=== PATIENT | male | born 1985 | race Hispanic/Latino ===

== ENCOUNTER 2016-07-11 06:55 | Emergency (ER) | payer OTHER ==
[2016-07-11] MEDS ORDERED: TORADOL IM ONE (07:17)
[2016-07-11] MEDS ORDERED: XYLOCAINE 1%/ EPI 1:100,000 INFILTRATI ONE (07:17)
[2016-07-11] MEDS ORDERED: BOOSTRIX IM ONE (07:18)
[2016-07-11 09:10] VITALS: BP 132/77
--- NOTE | 2016-07-11 09:16 | Emergency Department Report ---
ED General Adult HPI - General Chief complaint: Wound/Laceration Stated complaint: HEAD LAC/BACK PAIN Time Seen by Provider: 07/11/16 07:10 Source: patient Mode of arrival: Ambulatory Limitations: No Limitations - History of Present Illness Initial comments: The patient states he was startled by a snake while he was on a step ladder in his garage. He fell backwards and sliced the back of his scalp with sheet mental and fell onto his back. He complains of mild neck discomfort and moderate lower back pain. He states he felt some transient tingling but has no numbness or weakness of the extremities. He has been fully ambulatory. He states he's had some problems with his back in the past but not prior with his neck. Doesn't report any specific diagnosis however. -: Sudden Location: head, neck, back Radiation: non-radiation Quality: aching Consistency: intermittent Improves with: none Worsens with: none Associated Symptoms: denies other symptoms - Related Data Previous Rx's Medication Instructions Recorded Last Taken Type Cyclobenzaprine HCl [Flexeril 5 MG 5 mg PO TID PRN #10 tab 07/11/16 Unknown Rx TAB] HYDROcodone/APAP 5-325 [[place] 1 each PO Q6HR PRN #10 tablet 07/11/16 Unknown Rx 5/325] Allergies Allergy/AdvReac Type Severity Reaction Status Date / Time Penicillins Allergy Unknown Verified 07/11/16 07:07 ED Review of Systems ROS: Stated complaint: HEAD LAC/BACK PAIN Other details as noted in HPI Constitutional: denies: chills, fever Eyes: denies: eye pain, eye discharge, vision change ENT: denies: ear pain, throat pain Respiratory: denies: cough, shortness of breath, wheezing Cardiovascular: denies: chest pain, palpitations Endocrine: no symptoms reported Gastrointestinal: denies: abdominal pain, nausea, diarrhea Genitourinary: denies: urgency, dysuria Musculoskeletal: denies: back pain, joint swelling, arthralgia Skin: denies: rash, lesions Neurological: paresthesias. denies: headache, weakness, numbness, confusion Psychiatric: denies: anxiety, depression Hematological/Lymphatic: denies: easy bleeding, easy bruising ED Past Medical Hx - Past Medical History Additional medical history: Lower back pain - Surgical History Past Surgical History?: No - Social History Smoking Status: Never Smoker Substance Use Type: None - Medications Home Medications: Home Medications Medication Instructions Recorded Confirmed Last Taken Type Cyclobenzaprine HCl [Flexeril 5 MG 5 mg PO TID PRN #10 tab 07/11/16 Unknown Rx TAB] HYDROcodone/APAP 5-325 [[place] 1 each PO Q6HR PRN #10 tablet 07/11/16 Unknown Rx 5/325] ED Physical Exam - General Limitations: No Limitations General appearance: alert, in no apparent distress - Head Head exam: Present: normocephalic, other (3 cm superficial linear scalp laceration occiput) - Eye Eye exam: Present: normal appearance, PERRL, EOMI. Absent: scleral icterus - ENT ENT exam: Present: normal exam, mucous membranes moist - Neck Neck exam: Present: normal inspection, full ROM. Absent: tenderness, meningismus - Respiratory Respiratory exam: Present: normal lung sounds bilaterally. Absent: respiratory distress - Cardiovascular Cardiovascular Exam: Present: regular rate, normal rhythm. Absent: systolic murmur, diastolic murmur, rubs, gallop - GI/Abdominal GI/Abdominal exam: Present: soft, normal bowel sounds. Absent: distended, tenderness, guarding, rebound - Rectal Rectal exam: Present: deferred - Extremities Exam Extremities exam: Present: normal inspection - Back Exam Back exam: Present: normal inspection - Neurological Exam Neurological exam: Present: alert, oriented X3, CN II-XII intact. Absent: motor sensory deficit - Psychiatric Psychiatric exam: Present: normal affect, normal mood - Skin Skin exam: Present: warm, dry, intact, normal color. Absent: rash ED Course Vital Signs 07/11/16 07/11/16 07/11/16 07:01 07:26 07:29 Temperature 98.1 F Pulse Rate 90 Respiratory 16 16 16 Rate Blood Pressure 136/74 Blood Pressure [Left] O2 Sat by Pulse 100 100 Oximetry 07/11/16 07/11/16 07:56 09:06 Temperature Pulse Rate 88 Respiratory 16 16 Rate Blood Pressure Blood Pressure 132/77 [Left] O2 Sat by Pulse 100 Oximetry - Reevaluation(s) Reevaluation #1: Symptoms improved. Neurologically intact. We'll refer her to orthopedics. 07/11/16 09:14 - Laceration /Wound Repair Head Wound Location: head Wound Length (cm): 3 Wound's Depth, Shape: superficial Wound Explored: clean Betadine Prep?: Yes Anesthesia: Lidocaine w/ Epi Wound Repaired With: sutures (3 [place] placed) Layer Closure?: No Sterile Dressing Applied?: No ED Medical Decision Making - Radiology Data interpreted by me: Cervical and lumbar x-ray showed no fracture or malalignment. Critical care attestation.: If time is entered above; I have spent that time in minutes in the direct care of this critically ill patient, excluding procedure time. ED Disposition Clinical Impression: Cervical strain Qualifiers: Encounter type: initial encounter Qualified Code(s): S16.1XXA - Strain of muscle, fascia and tendon at neck level, initial encounter Lumbar strain Qualifiers: Encounter type: initial encounter Qualified Code(s): S39.012A - Strain of muscle, fascia and tendon of lower back, initial encounter Scalp laceration Qualifiers: Encounter type: initial encounter Qualified Code(s): S01.01XA - Laceration without foreign body of scalp, initial encounter Disposition: DISCHARGED TO HOME OR SELFCARE Is pt being admited?: No Does the pt Need Aspirin: No Condition: Stable Instructions: Muscle Strain (ED), Laceration (ED) Additional Instructions: Follow-up with orthopedist see referral. Rx as needed for pain. Work excuse given. Prescriptions: Cyclobenzaprine HCl [Flexeril 5 MG TAB] 5 mg PO TID PRN #10 tab PRN Reason: Muscle Spasm HYDROcodone/APAP 5-325 [[place] 5/325] 1 each PO Q6HR PRN #10 tablet PRN Reason: Pain Referrals: PRIMARY MD ARPITA [Primary Care Provider] - 3-5 Days PATRICIO GUARDADO MD [Staff Physician] - 3-5 Days Forms: Work/School Release Form(ED) Time of Disposition: 09:19
--- NOTE | 2016-07-11 10:33 | XRay Report ---
LUMBAR SPINE THREE VIEWS: 07/11/16 06:55:00 CLINICAL: Pain after fall. FINDINGS: Normal vertebral body height, alignment and disk spaces. Multilevel facet joint sclerosis. The pedicles are intact. No fracture. Normal soft tissues. IMPRESSION: Facet joint arthropathy. No apparent traumatic injury.
--- NOTE | 2016-07-11 10:33 | XRay Report ---
CERVICAL SPINE SERIES THREE VIEWS: 07/11/16 06:55:00 CLINICAL: Fall and neck pain. FINDINGS: Normal vertebral body height, alignment and disk spaces. No fracture or subluxation. Normal odontoid and C1. Normal airway and soft tissues. IMPRESSION: Normal.
== END 2016-07-11 09:36 | disposition home or self-care (01) ==
LOC: ED 06:55
DX: S01.01XA Laceration without foreign body of scalp, initial encounter (principal); S39.012A Strain of muscle, fascia and tendon of lower back, initial encounter; S16.1XXA Strain of muscle, fascia and tendon at neck level, initial encounter; W18.30XA Fall on same level, unspecified, initial encounter; Y93.9 Activity, unspecified; Y92.9 Unspecified place or not applicable; Y99.9 Unspecified external cause status
CPT/HCPCS: 12002; 72040; 72100; 90471; 90715; 96372; 99283; J1885

== ENCOUNTER 2016-12-08 13:40 | Emergency (ER) | payer OTHER ==
[2016-12-08] MEDS ORDERED: TORADOL IM ONE (13:55)
[2016-12-08] MEDS ORDERED: DECADRON IM ONE (13:55)
--- NOTE | 2016-12-08 13:59 | Emergency Department Report ---
ED Back Pain/Injury HPI - General Chief Complaint: Back Pain/Injury Stated Complaint: BACK PAIN Time Seen by Provider: 12/08/16 13:50 Source: patient Limitations: No Limitations - History of Present Illness Initial Comments: 31-year-old male lifted 650 pound patient several days ago presents with worsening back pain today. 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 Pain radiated down to his toes bilaterally. He's had some tingling in his toes. He is able to walk without difficulty. He's had no bowel or bladder incontinence. He's had no numbness or tingling in his groin. MD Complaint: back pain, back injury -: Sudden Similar Symptoms Previously: No Place: work Radiation: left leg, right leg Severity: severe Quality: sharp Consistency: constant Improves With: none Worsens With: movement Associated Symptoms: difficulty walking. denies: confusion, weakness, chest pain, numbness, difficulty urinating, incontinence - Related Data Previous Rx's Medication Instructions Recorded Last Taken Type Cyclobenzaprine HCl [Flexeril 5 MG 5 mg PO TID PRN #10 tab 12/08/16 Unknown Rx TAB] HYDROcodone/APAP 5-325 [[place] 1 each PO Q6HR PRN #10 tablet 12/08/16 Unknown Rx 5-325 mg TAB] Ibuprofen [Motrin] 600 mg PO Q8H PRN #30 tablet 12/08/16 Unknown Rx methylPREDNISolone [Medrol] 4 mg PO QAM #1 tab.ds.pk 12/08/16 Unknown Rx Allergies Allergy/AdvReac Type Severity Reaction Status Date / Time Penicillins Allergy Unknown Verified 07/11/16 07:07 ED Review of Systems ROS: Stated complaint: BACK PAIN Other details as noted in HPI Constitutional: denies: chills, fever Eyes: denies: eye pain, eye discharge Cardiovascular: denies: chest pain, palpitations Gastrointestinal: nausea. denies: abdominal pain, vomiting, diarrhea Musculoskeletal: back pain Skin: denies: rash, lesions Neurological: denies: headache, weakness, abnormal gait ED Past Medical Hx - Past Medical History Previous Medical History?: No Additional medical history: Lower back pain - Surgical History Past Surgical History?: No - Family History Family history: no significant - Social History Smoking Status: Never Smoker Substance Use Type: None - Medications Home Medications: Home Medications Medication Instructions Recorded Confirmed Last Taken Type Cyclobenzaprine HCl [Flexeril 5 MG 5 mg PO TID PRN #10 tab 12/08/16 Unknown Rx TAB] HYDROcodone/APAP 5-325 [[place] 1 each PO Q6HR PRN #10 tablet 12/08/16 Unknown Rx 5-325 mg TAB] Ibuprofen [Motrin] 600 mg PO Q8H PRN #30 tablet 12/08/16 Unknown Rx methylPREDNISolone [Medrol] 4 mg PO QAM #1 tab.ds.pk 12/08/16 Unknown Rx ED Physical Exam - General Limitations: No Limitations General appearance: alert, in no apparent distress - Head Head exam: Present: atraumatic, normocephalic - Eye Eye exam: Present: normal appearance, PERRL, EOMI - ENT ENT exam: Present: mucous membranes moist - Neck Neck exam: Present: normal inspection. Absent: lymphadenopathy - GI/Abdominal GI/Abdominal exam: Present: soft, normal bowel sounds. Absent: distended, tenderness, guarding - Rectal Rectal exam: Present: deferred - Extremities Exam Extremities exam: Present: normal inspection - Back Exam Back exam: Present: normal inspection, tenderness (tender in his right and left paraspinal muscles in his lumbar region), muscle spasm, paraspinal tenderness. Absent: vertebral tenderness - Neurological Exam Neurological exam: Present: alert, oriented X3, normal gait. Absent: motor sensory deficit - Psychiatric Psychiatric exam: Present: normal affect, normal mood - Skin Skin exam: Present: warm, dry, intact, normal color. Absent: rash ED Course Vital Signs 12/08/16 12/08/16 12/08/16 13:46 14:03 14:33 Temperature 98.4 F Pulse Rate 102 H Respiratory 18 18 18 Rate Blood Pressure 161/103 O2 Sat by Pulse 100 Oximetry 12/08/16 14:34 Temperature Pulse Rate Respiratory 18 Rate Blood Pressure O2 Sat by Pulse Oximetry ED Medical Decision Making - Medical Decision Making She will back injury likely due to heavy lifting. Plan to treat with IM steroids and I am NSAIDs. We will reassess. Patient does not appear to have cauda equina type symptoms. Patient improved with Toradol steroids and morphine. We'll repeat dose of morphine in the emergency department and plan to discharge the patient with oral steroids NSAIDs and Valium. Critical care attestation.: If time is entered above; I have spent that time in minutes in the direct care of this critically ill patient, excluding procedure time. ED Disposition Clinical Impression: Muscle spasm, Lumbar strain Disposition: TO HOME OR SELFCARE Is pt being admited?: No Condition: Stable Instructions: Lumbar Radiculopathy (ED), Low Back Strain (ED) Prescriptions: Cyclobenzaprine HCl [Flexeril 5 MG TAB] 5 mg PO TID PRN #10 tab PRN Reason: Muscle Spasm HYDROcodone/APAP 5-325 [[place] 5-325 mg TAB] 1 each PO Q6HR PRN #10 tablet PRN Reason: Pain Ibuprofen [Motrin] 600 mg PO Q8H PRN #30 tablet PRN Reason: Pain methylPREDNISolone [Medrol] 4 mg PO QAM #1 tab.ds.pk
[2016-12-08] MEDS ORDERED: MORPHINE ONE (14:26)
[2016-12-08] MEDS ORDERED: ZOFRAN ODT ONE (14:26)
[2016-12-08] MEDS ORDERED: MORPHINE IV ONE (14:32)
[2016-12-08] MEDS ORDERED: ZOFRAN ODT PO ONE (14:33)
[2016-12-08] MEDS ORDERED: MORPHINE IM ONE (16:17)
[2016-12-08 16:41] VITALS: BP 118/67
== END 2016-12-08 16:41 | disposition home or self-care (01) ==
LOC: ED 13:40
DX: S39.012A Strain of muscle, fascia and tendon of lower back, initial encounter (principal); Z88.0 Allergy status to penicillin; X58.XXXA Exposure to other specified factors, initial encounter; Y93.89 Activity, other specified; Y92.89 Other specified places as the place of occurrence of the external cause; Y99.8 Other external cause status
CPT/HCPCS: 96372; 96374; 99283; J1100; J1885; J2270; Q0162

== ENCOUNTER 2016-12-17 14:23 | Emergency (ER) | payer OTHER ==
[2016-12-17 14:44] VITALS: BP 160/114
--- NOTE | 2016-12-17 16:00 | Emergency Department Report ---
ED Back Pain/Injury HPI - General Chief Complaint: Back Pain/Injury Stated Complaint: BACK INJURY Time Seen by Provider: 12/17/16 14:45 Source: patient Limitations: No Limitations - History of Present Illness Initial Comments: 31-year-old male here with back pain. Patient states that he injured his back approximately one week. He returns today with recurrent pain. He has been without pain medication since Tuesday. He's been able to ambulate with some difficulty. States the pain continues down both sides of his legs and now is extending up into his back little bit. Denies incontinence of both urine and bowel MD Complaint: back pain -: Gradual Place: work Radiation: left leg, right leg Severity: severe Quality: burning Consistency: constant Improves With: immobilization Worsens With: none Context: while lifting Associated Symptoms: difficulty walking. denies: weakness, incontinence, constipation - Related Data Previous Rx's Medication Instructions Recorded Last Taken Type Cyclobenzaprine HCl [Flexeril 5 MG 5 mg PO TID PRN #10 tab 12/08/16 Unknown Rx TAB] HYDROcodone/APAP 5-325 [[place] 1 each PO Q6HR PRN #10 tablet 12/08/16 Unknown Rx 5-325 mg TAB] Ibuprofen [Motrin] 600 mg PO Q8H PRN #30 tablet 12/08/16 Unknown Rx methylPREDNISolone [Medrol] 4 mg PO QAM #1 tab.ds.pk 12/08/16 Unknown Rx HYDROcodone/APAP 10-325 [[place] 1 each PO Q8HR PRN #20 tablet 12/17/16 Unknown Rx 10-325 mg TAB] Tizanidine HCl [Zanaflex] 2 mg PO TID PRN #20 capsule 12/17/16 Unknown Rx Allergies Allergy/AdvReac Type Severity Reaction Status Date / Time Penicillins Allergy Unknown Verified 07/11/16 07:07 ED Review of Systems ROS: Stated complaint: BACK INJURY Other details as noted in HPI Comment: All other systems reviewed and negative Constitutional: denies: chills, fever Eyes: denies: eye pain, eye discharge, vision change ENT: denies: ear pain, throat pain Respiratory: denies: cough, shortness of breath, wheezing Cardiovascular: other (hypertension). denies: chest pain, palpitations Endocrine: no symptoms reported Gastrointestinal: denies: abdominal pain, nausea, diarrhea Genitourinary: denies: urgency, dysuria Musculoskeletal: denies: back pain, joint swelling, arthralgia Skin: denies: rash, lesions Neurological: denies: headache, weakness, paresthesias Psychiatric: denies: anxiety, depression Hematological/Lymphatic: denies: easy bleeding, easy bruising ED Past Medical Hx - Past Medical History Previous Medical History?: No Additional medical history: Lower back pain - Surgical History Past Surgical History?: No - Family History Family history: no significant - Social History Smoking Status: Never Smoker Substance Use Type: Alcohol - Medications Home Medications: Home Medications Medication Instructions Recorded Confirmed Last Taken Type Cyclobenzaprine HCl [Flexeril 5 MG 5 mg PO TID PRN #10 tab 12/08/16 Unknown Rx TAB] HYDROcodone/APAP 5-325 [[place] 1 each PO Q6HR PRN #10 tablet 12/08/16 Unknown Rx 5-325 mg TAB] Ibuprofen [Motrin] 600 mg PO Q8H PRN #30 tablet 12/08/16 Unknown Rx methylPREDNISolone [Medrol] 4 mg PO QAM #1 tab.ds.pk 12/08/16 Unknown Rx HYDROcodone/APAP 10-325 [[place] 1 each PO Q8HR PRN #20 tablet 12/17/16 Unknown Rx 10-325 mg TAB] Tizanidine HCl [Zanaflex] 2 mg PO TID PRN #20 capsule 12/17/16 Unknown Rx ED Physical Exam - General Limitations: No Limitations General appearance: alert, in no apparent distress - Head Head exam: Present: atraumatic, normocephalic - Respiratory Respiratory exam: Absent: normal lung sounds bilaterally, respiratory distress - Cardiovascular Cardiovascular Exam: Present: regular rate, normal rhythm - GI/Abdominal GI/Abdominal exam: Present: soft, distended - Back Exam Back exam: Absent: muscle spasm, paraspinal tenderness, vertebral tenderness - Neurological Exam Neurological exam: Present: alert, oriented X3, reflexes normal, other ( positive straight leg bilaterally at approximately 20). Absent: motor sensory deficit - Skin Skin exam: Present: warm, dry ED Course Vital Signs 12/17/16 14:42 Temperature 98.4 F Pulse Rate 119 H Respiratory 16 Rate Blood Pressure 160/114 O2 Sat by Pulse 100 Oximetry ED Medical Decision Making - Medical Decision Making 31-year-old male with continued back pain since my last evaluation. Patient has similar symptoms as he didn't pass. He has positive straight leg bilaterally. He has normal reflexes and good strength in his lower extremities. He has no saddle anesthesia. He's been out of pain medicine since Tuesday. We discussed the possibility of ordering an MRI today but the patient declined and would prefer to wait for his follow-up with his outpatient orthopedist. Plan at this point will be to treat with continued meds continue to encourage rest and have him follow-up with his orthopedist. I do not suspect cauda equina. Portions of this chart were dictated with dictation software. There may be dictation errors contained within this note. Critical care attestation.: If time is entered above; I have spent that time in minutes in the direct care of this critically ill patient, excluding procedure time. ED Disposition Clinical Impression: Lumbar strain, Muscle spasm Disposition: - TO HOME OR SELFCARE Is pt being admited?: No Condition: Stable Instructions: Muscle Strain (ED), Back Pain (ED), Lumbar Radiculopathy (ED) Prescriptions: HYDROcodone/APAP 10-325 [[place] 10-325 mg TAB] 1 each PO Q8HR PRN #20 tablet PRN Reason: Pain Tizanidine HCl [Zanaflex] 2 mg PO TID PRN #20 capsule PRN Reason: Muscle Spasm Referrals: PRIMARY CARE, [Primary Care Provider] - 3-5 Days
== END 2016-12-17 16:10 | disposition home or self-care (01) ==
LOC: ED 14:23
DX: S39.012A Strain of muscle, fascia and tendon of lower back, initial encounter (principal); M62.838 Other muscle spasm; Z88.0 Allergy status to penicillin; X58.XXXA Exposure to other specified factors, initial encounter; Y93.89 Activity, other specified; Y99.9 Unspecified external cause status; Y92.89 Other specified places as the place of occurrence of the external cause
CPT/HCPCS: 99282

== ENCOUNTER 2017-09-14 12:08 | Observation (INO) | payer OTHER ==
[2017-09-14] MEDS ORDERED: NACL 0.9% 1000 ML 1,000 ML IV ONE (12:31)
--- NOTE | 2017-09-14 12:37 | Emergency Department Report ---
ED General Adult HPI - General Chief complaint: Back Pain/Injury Stated complaint: NECK/BACK/BODY PAIN Time Seen by Provider: 09/14/17 12:20 Source: patient, RN notes reviewed, old records reviewed Mode of arrival: Ambulatory Limitations: No Limitations - History of Present Illness Initial comments: This is a 32-year-old male who is unknown to this provider previously, past medical history of chronic back pain after work-related injury. The patient comes to the ER with a complaint of intermittent right upper extremity weakness and paralysis. It started over the weekend after receiving pain injections at the C7 level for what the patient reports to be an outpatient MRI confirmed cervical radiculopathy. Patient endorses intermittent right arm weakness. He is not weak at this time. He also indicates left upper extremity radicular numbness, intermittently, which has been chronic, also involving the left shoulder blade. The patient also indicates no bladder or bowel retention or incontinence. 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 The symptoms include episodes of syncope which appear to be unprovoked, episodes of elevated high blood pressure , especially after taking steroid pack a months ago. The patient denies DVT and pulmonary embolus risk factors. He specifically denies chest pain, shortness of breath, posterior leg pain, swelling, surgeries. An MRI was ordered by his outpatient pain specialist -: Sudden Location: right, upper extremity Severity scale (0 -10): 10 Consistency: intermittent Improves with: none Worsens with: none Associated Symptoms: syncope, weakness. denies: confusion, chest pain, cough, diaphoresis, fever/chills, headaches, loss of appetite, malaise, nausea/vomiting , rash, seizure, shortness of breath - Related Data Home Medications Medication Instructions Recorded Confirmed Last Taken Gabapentin [Neurontin] 300 mg PO Q8HR 09/14/17 09/14/17 09/14/17 Lurasidone HCl [Latuda] 40 mg PO QDAY 09/14/17 09/14/17 09/13/17 QUEtiapine [SEROquel] 200 mg PO DAILY 09/14/17 09/14/17 09/13/17 Zolpidem [Ambien] 10 mg PO QHS 09/14/17 09/14/17 09/13/17 clonazePAM [Klonopin] 3 mg PO PRN 09/14/17 09/14/17 09/13/17 traZODone [Desyrel] 200 mg PO QHS 09/14/17 09/14/17 09/13/17 Previous Rx's Medication Instructions Recorded Last Taken Type Ibuprofen [Motrin 600 MG tab] 600 mg PO Q8H PRN #30 tablet 12/08/16 09/14/17 Rx Tizanidine HCl [Zanaflex] 2 mg PO TID PRN #20 capsule 12/17/16 09/13/17 Rx HYDROcodone/APAP 10-325 [[place] 1 each PO Q8HR PRN #12 tablet 09/16/17 Unknown Rx 10-325 mg TAB] Allergies Allergy/AdvReac Type Severity Reaction Status Date / Time Penicillins Allergy Unknown Verified 07/11/16 07:07 ED Review of Systems ROS: Stated complaint: NECK/BACK/BODY PAIN Other details as noted in HPI Constitutional: denies: fever Eyes: denies: vision change ENT: denies: epistaxis Respiratory: denies: cough Cardiovascular: syncope. denies: chest pain Gastrointestinal: denies: abdominal pain Genitourinary: denies: dysuria Musculoskeletal: arthralgia, myalgia Neurological: weakness, numbness, paresthesias Psychiatric: anxiety ED Past Medical Hx - Past Medical History Additional medical history: Lower back pain - Social History Smoking Status: Never Smoker Substance Use Type: Alcohol - Medications Home Medications: Home Medications Medication Instructions Recorded Confirmed Last Taken Type Ibuprofen [Motrin 600 MG tab] 600 mg PO Q8H PRN #30 tablet 12/08/16 09/14/17 Rx Tizanidine HCl [Zanaflex] 2 mg PO TID PRN #20 capsule 12/17/16 09/14/17 Rx Gabapentin [Neurontin] 300 mg PO Q8HR 09/14/17 09/14/17 09/14/17 History Lurasidone HCl [Latuda] 40 mg PO QDAY 09/14/17 09/14/17 09/13/17 History QUEtiapine [SEROquel] 200 mg PO DAILY 09/14/17 09/14/17 09/13/17 History Zolpidem [Ambien] 10 mg PO QHS 09/14/17 09/14/17 09/13/17 History clonazePAM [Klonopin] 3 mg PO PRN 09/14/17 09/14/17 09/13/17 History traZODone [Desyrel] 200 mg PO QHS 09/14/17 09/14/17 09/13/17 History HYDROcodone/APAP 10-325 [[place] 1 each PO Q8HR PRN #12 tablet 09/16/17 Unknown Rx 10-325 mg TAB] ED Physical Exam - General Limitations: No Limitations General appearance: alert, in no apparent distress - Head Head exam: Present: atraumatic, normocephalic - Eye Eye exam: Present: normal appearance, PERRL, EOMI, other (visual acuity intact to finger counting, color perception, reading at a close distance). Absent: nystagmus - ENT ENT exam: Present: normal exam, normal orophraynx, mucous membranes moist, normal external ear exam - Neck Neck exam: Present: normal inspection, full ROM. Absent: tenderness, meningismus - Respiratory Respiratory exam: Present: normal lung sounds bilaterally. Absent: respiratory distress - Cardiovascular Cardiovascular Exam: Present: regular rate, normal rhythm, normal heart sounds. Absent: bradycardia, tachycardia, irregular rhythm, systolic murmur, diastolic murmur, rubs, gallop - GI/Abdominal GI/Abdominal exam: Present: soft, normal bowel sounds. Absent: distended, tenderness, guarding, rebound, rigid, pulsatile mass - Rectal Rectal exam: Present: deferred - Extremities Exam Extremities exam: Present: normal inspection, full ROM, normal capillary refill , other (the compartments are soft. There is no palpable cord. The pelvis is stable. 2+ pulses noted in the bilateral upper, lower extremities.). Absent: tenderness, pedal edema, joint swelling, calf tenderness - Back Exam Back exam: Present: normal inspection, full ROM, other (there is no midline spinal tenderness, step-offs, redness, pus, streaking.). Absent: tenderness, CVA tenderness (R), paraspinal tenderness, vertebral tenderness - Neurological Exam Neurological exam: Present: alert, oriented X3, CN II-XII intact, normal gait, reflexes normal, other (Extraocular movements intact. Tongue midline. No facial droop. Facial sensation intact to light touch in the V1, V2, V3 distribution bilaterally. 5 and 5 strength in 4 extremities.. Sensation is intact to light touch in 4 extremities.). Absent: motor sensory deficit ( sensation intact to light touch and proprioception in bilateral upper, lower extremities. There is no clonus, there is no hyperreflexia) - Psychiatric Psychiatric exam: Present: normal affect, normal mood - Skin Skin exam: Present: warm, dry, intact, normal color. Absent: rash ED Course Vital Signs 09/14/17 09/14/17 09/14/17 12:16 14:56 15:00 Temperature 98.0 F Pulse Rate 108 H 95 H 83 Respiratory 18 19 16 Rate Blood Pressure 132/100 Blood Pressure 137/92 [Left] O2 Sat by Pulse 100 Oximetry 09/14/17 09/14/17 09/14/17 15:15 15:31 15:45 Temperature Pulse Rate 77 81 90 Respiratory 13 12 18 Rate Blood Pressure 138/95 138/95 Blood Pressure [Left] O2 Sat by Pulse Oximetry 09/14/17 09/14/17 09/14/17 16:00 16:15 16:31 Temperature Pulse Rate 93 H 82 85 Respiratory 16 12 13 Rate Blood Pressure 151/102 151/102 151/102 Blood Pressure [Left] O2 Sat by Pulse Oximetry 09/14/17 09/14/17 09/14/17 16:45 16:58 16:59 Temperature Pulse Rate 93 H Respiratory 22 20 20 Rate Blood Pressure 151/102 Blood Pressure [Left] O2 Sat by Pulse Oximetry 09/14/17 09/14/17 09/14/17 17:00 17:15 17:31 Temperature Pulse Rate 87 92 H 94 H Respiratory 17 15 19 Rate Blood Pressure 149/101 149/101 151/102 Blood Pressure [Left] O2 Sat by Pulse Oximetry 09/14/17 09/14/17 09/14/17 17:45 18:00 18:15 Temperature Pulse Rate 90 91 H 75 Respiratory 22 18 15 Rate Blood Pressure 151/102 145/100 145/100 Blood Pressure [Left] O2 Sat by Pulse Oximetry 09/14/17 09/14/17 09/14/17 18:31 19:03 19:15 Temperature Pulse Rate 95 H 102 H 98 H Respiratory 17 17 17 Rate Blood Pressure 145/100 145/100 145/100 Blood Pressure [Left] O2 Sat by Pulse Oximetry 09/14/17 09/14/17 09/14/17 19:31 19:45 20:00 Temperature Pulse Rate 90 84 82 Respiratory 14 11 L 16 Rate Blood Pressure 145/100 145/100 134/91 Blood Pressure [Left] O2 Sat by Pulse Oximetry 09/14/17 09/14/17 09/14/17 20:03 20:15 20:31 Temperature Pulse Rate 91 H 77 Respiratory 18 15 19 Rate Blood Pressure 134/91 134/91 Blood Pressure [Left] O2 Sat by Pulse Oximetry 09/14/17 09/14/17 09/14/17 20:45 21:01 21:15 Temperature Pulse Rate 82 91 H 95 H Respiratory 13 19 13 Rate Blood Pressure 134/91 134/91 Blood Pressure [Left] O2 Sat by Pulse Oximetry 09/14/17 09/14/17 09/14/17 21:31 21:33 21:41 Temperature Pulse Rate 97 H 90 104 H Respiratory 11 L 15 16 Rate Blood Pressure 134/91 134/91 134/91 Blood Pressure [Left] O2 Sat by Pulse Oximetry - Reevaluation(s) Reevaluation #1: 09/14/17 14:58 Differential diagnosis, including not limited to: Arrhythmia, structural cardiac disease, pulmonary embolus, electrolyte derangement, multiple sclerosis , epidural/cervical cord compression syndrome, transient ischemic attack, atypical presentation of seizure Assessment and plan: 32-year-old male with a complaint of intermittent right arm weakness after spinal injection. He currently has a GCS of 15, with an NIH score of 0. He has appropriate strength, sensation and there is no clinical indication of epidural compression syndrome at this time. He is afebrile with reassuring vital signs and his tachycardia has resolved. History He appears to be unprovoked and a chronic complaint since December, does not appear to have exacerbating or relieving factors, has no DVT, pulmonary embolus risk factors is low risk by well's criteria, and had a negative d-dimer. MRI of the brain and cervical spine pending at this time, case was discussed with consulting neurologist, Dr. Wesley, who agreed with this plan of care. Disposition as per imaging. If no neurosurgical pathology is identified on MR imaging, patient would be admitted for further evaluation of syncope and presumed TIA. Reevaluation #2: 09/14/17 15:49 MRI of the brain, with and without contrast is essentially negative. There is no evidence of a demyelinating process. Reevaluation #3: 09/14/17 15:53 MRI of the cervical spine is pending. Patient has had no syncopal events in the emergency room. Care transferred to the oncoming physician, Dr. Marcum to follow-up on MRI of the C-spine. He will also follow-up on the repeat potassium level. Reevaluation #4: 09/25/17 15:36 Clinical impression was initially not entered as the patient was signed out pending advanced imaging. I am unable to enter clinical impression now given that the patient has been discharged on the [facility] system. Therefore, my clinical impression will be transient ischemic attack of the upper extremity, etiology otherwise unspecified, as well as syncope. ED Medical Decision Making - Lab Data Result diagrams: 09/14/17 12:50 09/14/17 15:07 Critical care attestation.: If time is entered above; I have spent that time in minutes in the direct care of this critically ill patient, excluding procedure time. ED Disposition Clinical Impression: Obesity (BMI 30.0-34.9) Disposition: DC-09 OP ADMIT IP TO THIS HOSP Is pt being admited?: Yes Does the pt Need Aspirin: No Condition: Good
[2017-09-14 13:28] LABS: Basophils % (Auto) 0.2 % (0.0-1.8); Eosinophils % (Auto) 0.6 % (0.0-4.3); Lymphocytes # (Auto) 1.7 K/mm3 (1.2-5.4); Lymphocytes % (Auto) 25.6 % (13.4-35.0); Mean Corpuscular HGB Conc 36 % (32-34); Mean Corpuscular Hemoglobin 32 pg (28-32); Mean Corpuscular Volume 89 fl (84-94); Monocytes # (Auto) 0.6 K/mm3 (0.0-0.8); Monocytes % (Auto) 8.6 % (0.0-7.3); Platelet Count 262 K/mm3 (140-440); Red Blood Count 5.55 M/mm3 (3.65-5.03)
[2017-09-14 13:35] LABS: Hematocrit 49.3 % (35.5-45.6); Hemoglobin 17.6 gm/dl (11.8-15.2)
[2017-09-14 13:41] LABS: INR 0.93 (0.87-1.13)
[2017-09-14 13:46] LABS: Albumin 4.8 g/dL (3.9-5); BUN/Creatinine Ratio 16; Blood Urea Nitrogen 14 mg/dL (9-20); Calcium 9.7 mg/dL (8.4-10.2); Hemolysis Index 728
[2017-09-14 14:03] LABS: Alanine Aminotransferase 40 units/L (7-56)
--- NOTE | 2017-09-14 15:58 | History and Physical Report ---
History of Present Illness Chief complaint: I feel weak, and i have been passing out History of present illness: 32 YO Male with Lumbar Pain, Cervical Radiculopathy, Chronic Pain presents to ED for evaluation. Pt states that he has experienced right arm weakness and paralysis. Pt states that he has also experienced multiple episodes of syncope. Pt states that the aformentioned symptoms began after a work related injury 9 months ago with acute worsening symptoms over the past 2 days. Pt was transported to [facility] for further care and evaluation. Pt seen and evaluated in ED and found to have symptoms consistent with acute CVA. Pt outside therapeutic window for TPA. Pt admitted to telemetry and treated IA stroke protocol. Pt denies fever, chills, CP, Palpitations, NVD, Trauma, prolonged travel/immobility , leg swelling, calf pain, BRBPR,skin rash, or recent ill contacts. Pt acknowledges presence of trigger points causing pain on physical exam. Past History Past Medical History: other (Chronic Pain, Cervical radiculopathy) Past Surgical History: No surgical history, Other (reviewed) Social history: single. denies: smoking, alcohol abuse, prescription drug abuse Family history: no significant family history (reviewed) Medications and Allergies Allergies Allergy/AdvReac Type Severity Reaction Status Date / Time Penicillins Allergy Unknown Verified 07/11/16 07:07 Home Medications Medication Instructions Recorded Confirmed Last Taken Type Ibuprofen [Motrin] 600 mg PO Q8H PRN #30 tablet 12/08/16 09/14/17 09/14/17 Rx HYDROcodone/APAP 10-325 [[place] 1 each PO Q8HR PRN #20 tablet 12/17/16 09/14/17 09/14/17 Rx 10-325 mg TAB] Tizanidine HCl [Zanaflex] 2 mg PO TID PRN #20 capsule 12/17/16 09/14/17 Rx Gabapentin [Neurontin] 300 mg PO Q8HR 09/14/17 09/14/17 09/14/17 History Lurasidone HCl [Latuda] 40 mg PO QDAY 09/14/17 09/14/17 09/13/17 History QUEtiapine [SEROquel] 200 mg PO DAILY 09/14/17 09/14/17 09/13/17 History Zolpidem [Ambien] 10 mg PO QHS 0509/14/17 09/13/17 History clonazePAM [Klonopin] 3 mg PO PRN 09/14/17 09/14/17 09/13/17 History traZODone [Desyrel] 200 mg PO QHS 09/14/17 09/14/17 09/13/17 History Review of Systems Constitutional: no weight loss, no weight gain, no fever, no chills Ears, nose, mouth and throat: no ear pain, no ear discharge, no tinnitis, no decreased hearing, no nose pain, no nasal congestion Cardiovascular: syncope, no chest pain, no orthopnea, no palpitations, no rapid/ irregular heart beat, no edema Respiratory: no cough, no cough with sputum, no excessive sputum, no hemoptysis , no shortness of breath Gastrointestinal: no abdominal pain, no nausea, no vomiting, no diarrhea, no constipation Genitourinary Male: no dysuria, no hematuria, no flank pain, no discharge, no urinary frequency, no urinary hesitancy, no nocturia, no incontinence Rectal: no pain, no incontinence, no bleeding, no discharge Musculoskeletal: low back pain, muscle weakness, no neck stiffness Integumentary: no rash, no pruritis, no redness, no sores, no wounds, no jaundice Neurological: weakness, numbness, syncope, lack of coordination, motor disturbance, no head injury, no vertigo, no headaches, no migraines, no double vision, no loss of vision Psychiatric: anxiety, no memory loss, no change in sleep habits Endocrine: no cold intolerance, no heat intolerance, no polyphagia, no excessive thirst, no polydipsia, no polyuria, no nocturia Hematologic/Lymphatic: no easy bruising, no easy bleeding, no lymphadenopathy, no lymphedema Allergic/Immunologic: no urticaria, no allergic rhinitis, no wheezing, no persistent infections, no anaphylaxis, no angioedema Exam - Constitutional Vitals: Temp Pulse Resp BP Pulse Ox 98.0 F 108 H 18 137/92 100 09/14/17 12:16 09/14/17 12:16 09/14/17 12:16 09/14/17 12:16 09/14/17 12:16 General appearance: Present: mild distress - EENT Eyes: Present: PERRL ENT: hearing intact, clear oral mucosa - Neck Neck: Present: supple, normal ROM - Respiratory Respiratory effort: normal Respiratory: bilateral: CTA - Cardiovascular Heart Sounds: Present: S1 & S2. Absent: rub, click - Extremities Extremities: pulses symmetrical, No edema Peripheral Pulses: within normal limits - Abdominal General gastrointestinal: Present: soft, non-tender, non-distended, normal bowel sounds Male genitourinary: Present: normal - Integumentary Integumentary: Present: clear, warm, dry - Musculoskeletal Musculoskeletal: gait normal, strength equal bilaterally - Psychiatric Psychiatric: appropriate mood/affect, intact judgment & insight - Neurologic Neurologic: CNII-XII intact, moves all extremities Results - Labs CBC & Chem 7: 09/14/17 12:50 09/14/17 15:07 Labs: Abnormal lab results 09/14/17 09/14/17 Range/Units 12:50 12:50 RBC 5.55 H (3.65-5.03) M/mm3 Hgb 17.6 H (11.8-15.2) gm/dl Hct 49.3 H (35.5-45.6) % MCHC 36 H (32-34) % RDW 13.0 L (13.2-15.2) % [place] % (Auto) 8.6 H (0.0-7.3) % Sodium 136 L (137-145) mmol/L Potassium 6.9 H* (3.6-5.0) mmol/L Chloride 96.4 L (98-107) mmol/L AST 68 H (5-40) units/L Total Protein 8.3 H (6.3-8.2) g/dL Assessment and Plan - Patient Problems (1) CVA (cerebral vascular accident) Current Visit: Yes Status: Suspected Qualifiers: Precerebral and cerebral artery: middle cerebral artery Laterality of affected vessel: left Plan to address problem: Stroke protocol: CT Head conducted as outpatient and was unremarkable for acute CVA, MRI brain, MRA brain, Echo, EEG, antiplatelet therapy, lipid panel, PT/OT/ Speech Therapy, Neurology consulted in ED and recommend MRI of brain and MRI C spine. (2) Cervical radiculopathy Current Visit: Yes Status: Acute Plan to address problem: Pain control, supportive care. (3) Fibromyalgia Current Visit: Yes Status: Acute Plan to address problem: THS level, B12 level, 25 Hydroxy Vitamin D level, Magnesium level, ROSI, ESR, CRP , outpatient rheumatology f/u (4) Obesity (BMI 30.0-34.9) Current Visit: Yes Status: Acute Plan to address problem: balanced diet, increased physical activity at discharge, (5) DVT prophylaxis Current Visit: Yes Status: Acute Plan to address problem: scd to ble while in bed.
[2017-09-14] MEDS ORDERED: MILK OF MAGNESIA PO PRN (16:13)
[2017-09-14] MEDS ORDERED: PROVENTIL IH PRN (16:13)
[2017-09-14] MEDS ORDERED: TYLENOL PO PRN (16:13)
[2017-09-14] MEDS ORDERED: REGLAN PO PRN (16:13)
[2017-09-14] MEDS ORDERED: SODIUM CHLORIDE FLUSH SYRINGE 10 ML IV PRN (16:13)
[2017-09-14] MEDS ORDERED: PHENERGAN PR PRN (16:13)
[2017-09-14] MEDS ORDERED: DULCOLAX PR PRN (16:13)
[2017-09-14] MEDS ORDERED: ZOFRAN IV PRN (16:13)
[2017-09-14] MEDS ORDERED: DILAUDID IV PRN (16:34)
[2017-09-14] MEDS ORDERED: MORPHINE ONE (16:52)
[2017-09-14] MEDS ORDERED: PERCOCET 5/325 ONE (16:53)
[2017-09-14] MEDS: MORPHINE IV PRN ×2 (16:58→21:21)
[2017-09-14] MEDS: PERCOCET 5/325 PO PRN ×2 (16:59→21:21)
[2017-09-14] MEDS ORDERED: MORPHINE IV ONE (19:50)
[2017-09-14 20:13] LABS: C-Reactive Protein 0.1 mg/dL (0.00-1.30)
[2017-09-14 20:28] LABS: Free T4 (Free Thyroxine) 1.27 ng/dL (0.76-1.46)
[2017-09-14] MEDS ORDERED: PEPCID PO SCH ×2 (22:00)
[2017-09-14] MEDS ORDERED: PERCOCET 5/325 PO PRN (23:50)
[2017-09-15 01:06] LABS: Bilirubin,Urine NEG (Negative); Blood,Urine NEG (Negative); Color,Urine Straw (Yellow); Protein,Urine <15 mg/dL mg/dL (Negative); Urobilinogen,Urine < 2.0 mg/dL (<2.0)
[2017-09-15 01:12] LABS: Amphetamine Screen,Urine PRESUMPTIVE NEGATIVE; Benzodiazepines Screen,Urine PRESUMPTIVE NEGATIVE; Cannabinoid Screen,Urine PRESUMPTIVE NEGATIVE; Cocaine Screen,Urine PRESUMPTIVE NEGATIVE; Methadone Screen,Urine PRESUMPTIVE NEGATIVE; Opiate Screen,Urine PRESUMPTIVE NEGATIVE
[2017-09-15 01:17] LABS: Mucus,Urine Few /HPF; WBC,Urine < 1.0 /HPF (0.0-6.0)
[2017-09-15] MEDS: MORPHINE IV PRN ×5 (01:46→20:44)
[2017-09-15 07:37] LABS: Chol/HDL Ratio 5.5 %
[2017-09-15] MEDS ORDERED: NON-FORMULARY (Lurasidone Hcl [Latuda] 40 MG) PO SCH ×2 (10:00→10:15)
[2017-09-15] MEDS ORDERED: NON-FORMULARY (Tizanidine Hcl [Zanaflex] 2 MG) PO PRN (10:01)
[2017-09-15] MEDS ORDERED: NORCO 10/325 PO PRN (10:01)
[2017-09-15] MEDS ORDERED: MOTRIN PO PRN (10:01)
[2017-09-15] MEDS: ASPIRIN PO SCH (11:01)
[2017-09-15] MEDS: PROTONIX PO SCH ×2 (11:07→22:21)
[2017-09-15] MEDS: NEURONTIN PO SCH ×2 (13:00→22:21)
[2017-09-15] MEDS: ZANAFLEX PO PRN ×2 (13:01→22:22)
--- NOTE | 2017-09-15 13:25 | Magnetic Resonance Report ---
MR CERVICAL SPINE WITHOUT CONTRAST HISTORY: Injury, pain, intermittent right upper extremity paralysis. TECHNIQUE: Axial T2 and T2 gradient. Sagittal T1, T2 and STIR. COMPARISON: No relevant comparison. FINDINGS: The cervical spinal cord is normal size and signal intensity throughout. No abnormal intramedullary signal is detected. Normal height and alignment of the cervical vertebral bodies. Normal bone marrow signal. The intervertebral disc spaces are within normal limits. The facet joints are in appropriate relationship. No significant joint pathology or hypertrophic changes. The paraspinal soft tissues are within normal limits. C2-3: Mild left uncovertebral spurring is identified. No herniation, central canal stenosis or significant neural foraminal stenosis. C3-4: Mild right uncovertebral spurring and mild facet arthropathy is identified. Right neural foraminal narrowing is estimated at 50%. No herniation or central canal stenosis. C4-5: Within normal limits. C5-6: Within normal limits. C6-7: Mild bilateral uncovertebral spurring and mild facet arthropathy is identified. Bilateral neural foraminal narrowing is estimated at 25%. No central canal stenosis. C7-T1: Within normal limits. IMPRESSION: Mild cervical spondylosis is identified as outlined above. No evidence for herniation, central canal stenosis or high-grade neural foraminal narrowing..
--- NOTE | 2017-09-15 15:23 | Progress Note ---
Assessment and Plan Assessment and plan: 32-year-old -Togolese male presented to the emergency department with complaints of recurrent syncopal episode, occasional right-sided weakness. Patient had history of trauma to the back and after that he has been taking narcotics for pain control. Patient said he has disc bulging and steroid injection b/n C5 and C6 after the injection he said the sycopal episode become more frequent. CT head was done and normal. MRI, both head and spinal cord pending reading. Neurology consulted. Continue home medications for pain control and anxiety. Patient said he has been followed by orthopedics as an outpatient for the pain. Patient is also complaining of anxiety and on clonapam. Fibromyalgia/chronic pain History Interval history: Patient was seen and evaluated this morning, patient is still complaining of severe back pain. Hospitalist Physical - Physical exam Narrative exam: Not in cardiopulmonary distress. The patient appeared well nourished and normally developed. Vital signs as documented. Head exam is unremarkable. No scleral icterus . Neck is without jugular venous distension, thyromegaly, or carotid bruits. Lungs are clear to auscultation. Cardiac exam reveals regular rate and Rhythm. First and second heart sounds normal. No murmurs, rubs or gallops. Abdominal exam reveals normal bowel sounds, no masses, no organomegaly and no aortic enlargement. Extremities are nonedematous and both femoral and pedal pulses are normal. POLISHER EYEGLASS FRAMES: Alert and oriented 3. No focal weakness. - Constitutional Vitals: Temp Pulse Resp BP Pulse Ox 98.0 F 108 H 18 143/100 100 09/15/17 12:40 09/15/17 12:40 09/15/17 12:40 09/15/17 12:40 09/15/17 06:57 General appearance: Present: mild distress Results - Labs CBC & Chem 7: 09/14/17 12:50 09/14/17 15:07 Labs: Laboratory Last Values WBC 6.6 K/mm3 (4.5-11.0) 09/14/17 12:50 RBC 5.55 M/mm3 (3.65-5.03) H 09/14/17 12:50 Hgb 17.6 gm/dl (11.8-15.2) H 09/14/17 12:50 Hct 49.3 % (35.5-45.6) H 09/14/17 12:50 MCV 89 fl (84-94) 09/14/17 12:50 MCH 32 pg (28-32) 09/14/17 12:50 MCHC 36 % (32-34) H 09/14/17 12:50 RDW 13.0 % (13.2-15.2) L 09/14/17 12:50 Plt Count 262 K/mm3 (140-440) 09/14/17 12:50 Lymph % (Auto) 25.6 % (13.4-35.0) 09/14/17 12:50 [place] % (Auto) 8.6 % (0.0-7.3) H 09/14/17 12:50 Eos % (Auto) 0.6 % (0.0-4.3) 09/14/17 12:50 Baso % (Auto) 0.2 % (0.0-1.8) 09/14/17 12:50 Lymph # 1.7 K/mm3 (1.2-5.4) 09/14/17 12:50 [place] # 0.6 K/mm3 (0.0-0.8) 09/14/17 12:50 Eos # 0.0 K/mm3 (0.0-0.4) 09/14/17 12:50 Baso # 0.0 K/mm3 (0.0-0.1) 09/14/17 12:50 Seg Neutrophils % 65.0 % (40.0-70.0) 09/14/17 12:50 Seg Neutrophils # 4.3 K/mm3 (1.8-7.7) 09/14/17 12:50 ESR 1 mm/Hr (0-20) 09/14/17 19:44 PT 12.9 Sec. (12.2-14.9) 09/14/17 12:50 INR 0.93 (0.87-1.13) 09/14/17 12:50 D-Dimer < 135.00 ng/mlDDU (0-234) 09/14/17 12:50 Sodium 136 mmol/L (137-145) L 09/14/17 12:50 Potassium 4.2 mmol/L (3.6-5.0) D 09/14/17 15:07 Chloride 96.4 mmol/L (98-107) L 09/14/17 12:50 Carbon Dioxide 25 mmol/L (22-30) 09/14/17 12:50 Anion Gap 22 mmol/L 09/14/17 12:50 BUN 14 mg/dL (9-20) 09/14/17 12:50 Creatinine 0.9 mg/dL (0.8-1.5) 09/14/17 12:50 Estimated GFR > 60 ml/min 09/14/17 12:50 BUN/Creatinine Ratio 16 % 09/14/17 12:50 Glucose 94 mg/dL (75-100) 09/14/17 12:50 Calcium 9.7 mg/dL (8.4-10.2) 09/14/17 12:50 Magnesium 1.80 mg/dL (1.7-2.3) 09/14/17 19:44 Total Bilirubin 0.80 mg/dL (0.1-1.2) 09/14/17 12:50 AST 68 units/L (5-40) H 09/14/17 12:50 ALT 40 units/L (7-56) 09/14/17 12:50 Alkaline Phosphatase 71 units/L (35-129) 09/14/17 12:50 Troponin T < 0.010 ng/mL (0.00-0.029) 09/14/17 12:50 C-Reactive Protein 0.10 mg/dL (0.00-1.30) 09/14/17 19:44 Total Protein 8.3 g/dL (6.3-8.2) H 09/14/17 12:50 Albumin 4.8 g/dL (3.9-5) 09/14/17 12:50 Albumin/Globulin Ratio 1.4 % 09/14/17 12:50 Triglycerides 195 mg/dL (2-149) H 09/15/17 06:20 Cholesterol 253 mg/dL (50-199) H 09/15/17 06:20 LDL Cholesterol Direct 174 mg/dL (50-130) H 09/15/17 06:20 HDL Cholesterol 46 mg/dL (40-59) 09/15/17 06:20 Cholesterol/HDL Ratio 5.50 % 09/15/17 06:20 Vitamin B12 422.5 pg/mL (211-911) 09/14/17 19:44 TSH 1.210 mlU/mL (0.270-4.200) 09/14/17 19:44 Free T4 1.27 ng/dL (0.76-1.46) 09/14/17 19:44 Urine Color Straw (Yellow) 09/14/17 00:00 Urine Turbidity Clear (Clear) 09/14/17 00:00 Urine pH 6.0 (5.0-7.0) 09/14/17 00:00 Ur Specific [place] 1.008 (1.003-1.030) 09/14/17 00:00 Urine Protein <15 mg/dl mg/dL (Negative) 09/14/17 00:00 Urine Glucose (UA) Neg mg/dL (Negative) 09/14/17 00:00 Urine Ketones Neg mg/dL (Negative) 09/14/17 00:00 Urine Blood Neg (Negative) 09/14/17 00:00 Urine Nitrite Neg (Negative) 09/14/17 00:00 Urine Bilirubin Neg (Negative) 09/14/17 00:00 Urine Urobilinogen < 2.0 mg/dL (<2.0) 09/14/17 00:00 Ur Leukocyte Esterase Neg (Negative) 09/14/17 00:00 Urine WBC (Auto) < 1.0 /HPF (0.0-6.0) 09/14/17 00:00 Urine RBC (Auto) 1.0 /HPF (0.0-6.0) 09/14/17 00:00 Urine Mucus Few /HPF 09/14/17 00:00 Urine Opiates Screen Presumptive negative 09/14/17 00:00 Urine Methadone Screen Presumptive negative 09/14/17 00:00 Ur Barbiturates Screen Presumptive negative 09/14/17 00:00 Ur Phencyclidine Scrn Presumptive negative 09/14/17 00:00 Ur Amphetamines Screen Presumptive negative 09/14/17 00:00 U Benzodiazepines Scrn Presumptive negative 09/14/17 00:00 Urine Cocaine Screen Presumptive negative 09/14/17 00:00 U Marijuana (THC) Screen Presumptive negative 09/14/17 00:00 Drugs of Abuse Note Disclamer 09/14/17 00:00 Blood Type O NEGATIVE 09/14/17 15:24 Antibody Screen Negative 09/14/17 15:24
[2017-09-15] MEDS: NORCO 10/325 PO PRN ×2 (17:26→22:39)
--- NOTE | 2017-09-15 19:03 | Consultation ---
History of Present Illness Consult date: 09/15/17 History of present illness: see my complete dictated note the MRI of the brain is normal plan check the echocardiogram syncope wll be evaluated plan f/u I will check the EEG as well and leave note Past History Past Medical History: other (Chronic Pain, Cervical radiculopathy) Past Surgical History: No surgical history, Other (reviewed) Social history: single. denies: smoking, alcohol abuse, prescription drug abuse Family history: no significant family history (reviewed) Medications and Allergies Allergies Allergy/AdvReac Type Severity Reaction Status Date / Time Penicillins Allergy Unknown Verified 07/11/16 07:07 Home Medications Medication Instructions Recorded Confirmed Last Taken Type Ibuprofen [Motrin] 600 mg PO Q8H PRN #30 tablet 12/08/16 09/14/17 09/14/17 Rx HYDROcodone/APAP 10-325 [[place] 1 each PO Q8HR PRN #20 tablet 12/17/16 09/14/17 09/14/17 Rx 10-325 mg TAB] Tizanidine HCl [Zanaflex] 2 mg PO TID PRN #20 capsule 12/17/16 09/14/17 Rx Gabapentin [Neurontin] 300 mg PO Q8HR 09/14/17 09/14/17 09/14/17 History Lurasidone HCl [Latuda] 40 mg PO QDAY 09/14/17 09/14/17 09/13/17 History QUEtiapine [SEROquel] 200 mg PO DAILY 09/14/17 09/14/17 09/13/17 History Zolpidem [Ambien] 10 mg PO QHS 09/14/17 09/14/17 09/13/17 History clonazePAM [Klonopin] 3 mg PO PRN 09/14/17 09/14/17 09/13/17 History traZODone [Desyrel] 200 mg PO QHS 09/14/17 09/14/17 09/13/17 History Active Meds: Active Medications Acetaminophen (Tylenol) 650 mg PO Q4H PRN PRN Reason: Pain, Mild (1-3) Acetaminophen/Hydrocodone Bitart ([place] 10/325) 1 each PO Q4H PRN PRN Reason: Pain unrelieved by ibuprofen Last Admin: 09/15/17 17:26 Dose: 1 each Albuterol (Proventil) 2.5 mg IH Q3HRT PRN PRN Reason: Shortness Of Breath Aspirin (Aspirin) 325 mg PO QDAY [facility] Last Admin: 09/15/17 11:01 Dose: 325 mg Atorvastatin Calcium (Lipitor) 40 mg PO QHS [facility] Bisacodyl (Dulcolax) 10 mg [place] QDAY PRN PRN Reason: Constipation Clonazepam (Klonopin) 3 mg PO Q24H PRN PRN Reason: Anxiety Last Admin: 09/15/17 13:00 Dose: 3 mg Enoxaparin Sodium (Lovenox) 40 mg SUB-Q QDAY@2200 [facility] Gabapentin (Neurontin) 300 mg PO Q8HR [facility] Last Admin: 09/15/17 13:00 Dose: 300 mg Ibuprofen (Motrin) 600 mg PO Q8H PRN PRN Reason: Pain, Mild (1-3) Magnesium Hydroxide (Milk Of Magnesia) 30 ml PO Q4H PRN PRN Reason: Constipation Miscellaneous Medication (Lurasidone Hcl [Latuda]) 40 mg PO QDAY [facility] Morphine Sulfate (Morphine) 4 mg IV Q4H PRN PRN Reason: Pain, Moderate (4-6) Last Admin: 09/15/17 11:01 Dose: 4 mg Ondansetron HCl (Zofran) 4 mg IV Q8H PRN PRN Reason: N/V unrelieved by Nicole Last Admin: 09/15/17 01:50 Dose: 4 mg Pantoprazole Sodium (Protonix) 20 mg PO BID [facility] Last Admin: 09/15/17 11:07 Dose: 20 mg Promethazine HCl (Phenergan) 25 mg [place] Q6H PRN PRN Reason: Nausea And Vomiting Quetiapine Fumarate (Seroquel) 200 mg PO DAILY [facility] Last Admin: 09/15/17 11:02 Dose: 200 mg Sodium Chloride (Sodium Chloride Flush Syringe 10 Ml) 10 ml IV PRN PRN PRN Reason: LINE FLUSH Tizanidine HCl (Zanaflex) 2 mg PO TID PRN PRN Reason: Muscle Spasm Last Admin: 09/15/17 13:01 Dose: 2 mg Trazodone HCl (Desyrel) 200 mg PO QHS [facility] Physical Examination - Vital Signs Vital Signs: Vital Signs Temp Pulse Resp BP Pulse Ox 98.0 F 108 H 18 137/92 100 09/14/17 12:16 09/14/17 12:16 09/14/17 12:16 09/14/17 12:16 09/14/17 12:16 Results - Laboratory Findings CBC and BMP: 09/14/17 12:50 09/14/17 15:07 Abnormal Lab Findings: Abnormal Labs 09/14/17 09/14/17 09/15/17 12:50 12:50 06:20 RBC 5.55 H Hgb 17.6 H Hct 49.3 H MCHC [address] [place] % (Auto) 8.6 H Sodium 136 L Potassium 6.9 H* Chloride 96.4 L AST 68 H Total Protein 8.3 H Triglycerides 195 H Cholesterol 253 H LDL Cholesterol Direct 174 H
[2017-09-15] MEDS ORDERED: LOVENOX SUB-Q SCH (22:00)
[2017-09-15] MEDS ORDERED: DESYREL PO SCH (22:00)
[2017-09-15] MEDS ORDERED: AMBIEN PO ONE (23:56)
--- NOTE | 2017-09-16 01:49 | Consultation ---
This EEG shows a background rhythm of normal alpha activity. This EEG does show a great deal of sweating artifact and the patient has evidence of no focal seizure activity and no focal abnormalities. IMPRESSION: Entirely normal EEG for the patient's stated age of 32. JOB# [id number] REYMUNDO/NTS
--- NOTE | 2017-09-16 02:33 | Consultation ---
ROOM NUMBER: [id number]. HISTORY OF PRESENT ILLNESS: This is a 32-year-old white male that was admitted to [facility] via the Emergency Room following a syncopal episode. The patient was evaluated and consultation for neurological reasons, TIA, increased neck pain, complicated history. The patient has been on Latuda and Seroquel, previously has had no syncopal episodes like the one he had on the day of admission. This occurred without warning. He fell, did not lose bowel or bladder continence. His is in the room. I took history from her quite extensively. He clearly did not have a seizure. He has a sleep disorder, takes Latuda and Seroquel 200 mg, intermittently has been on this medication, takes low dose hydrocodone therapy for a cervical, lumbar disk problems, recently been having severe chest pain and pain across the shoulder blades. From reviewing the ED note, it was thought he potentially had a stroke because he was complaining of some right arm pain, right arm weakness, it should be noted the patient had had epidural steroid injection on the . This pain increased, he began to have more problems and he had some weakness in his right arm. ALLERGIES: PENICILLIN. FAMILY HISTORY: Sister with Sjogren syndrome. SOCIAL HISTORY: Denies drinking, denies smoking. He is . PHYSICAL EXAMINATION: VITAL SIGNS: On my examination, his blood pressure is 120/87, respirations 18, pulse rate 86. NEUROLOGIC: Cranial nerves 2-12 are intact. He appears at this time to be extremely sleepy. I did examine his neck, he is unremarkable. I examined his back, I do not see superficial lesion suggestive of zoster or any other skin eruptions. I do not see any local edema. His strength is intact. Reflexes are all symmetrical. Cranial nerves are intact. Motor and sensory examination is normal, although he does have some hyperpathia in the right arm in the C5, C6, C7 distribution. This is really global and nonradicular. IMPRESSION: Syncope. I suspect based on my complete review of the chart and further analysis of other factors that the combination of Latuda and Seroquel may be responsible for this. I do not see anything on his MRI scan, which I personally reviewed, I looked at his cervical MRI scan was interpreted by the radiologist is normal. I do not see anything on either, he currently has no air, there is no spinal cord edema, no evidence of any diskitis subsequent to the injection. I have reviewed all of his laboratory, he has normal B12 level. His C-reactive protein is normal. His repeat potassium level is normal. In the Emergency Room, it was elevated. This may be an erroneous lab result; however, was pending at this point is what I have been told he has had a ____ level and a vitamin D level. My recommendation at this point is to check the echocardiogram closely. I do not have results back on that yet. I will withhold complete comment until I had a chance to review the echocardiogram. I plan to also get a CPK. I will follow as well recommend reading his EEG, which I plan to read. I will leave a note about this separately. At this point, the patient's neurological condition seems improving. I doubt that this was related to any overt TIA and the possibility of this being related to some very obscure reaction of the epidural, this cannot be ruled out. This might be considered. I did explain this to the and went over the diagnostic ideas with her my therapeutic opinions. JOB# [id number] REYMUNDO/GERONIMO
[2017-09-16] MEDS: NEURONTIN PO SCH (06:11)
[2017-09-16] MEDS: MORPHINE IV PRN (06:13)
[2017-09-16 08:55] VITALS: BP 114/79
[2017-09-16] MEDS: ASPIRIN PO SCH (11:22)
[2017-09-16] MEDS: PROTONIX PO SCH (11:23)
--- NOTE | 2017-09-16 11:32 | Discharge Summary ---
Providers - Providers Date of Admission: 09/14/17 16:13 Attending physician: ROMINA AKERS MD 09/14/17 Consult to Physician [CONS] Stat Comment: Consulting Provider: SHAYY ROSSI Physician Instructions: Reason For Exam: tia 09/14/17 16:13 Occupational Therapy Evaluate and Treat [CONS] Routine Comment: Reason For Exam: Neuro deficits Physical Therapy Evaluation and Treat [CONS] Routine Comment: Reason For Exam: Neuro deficits 09/14/17 16:15 Speech Therapy Evaluation and Treat [CONS] Routine Reason For Exam: swallow eval 09/15/17 09:58 Consult to Physician [CONS] Routine Comment: Consulting Provider: NEIDA HARRY Physician Instructions: Reason For Exam: back pain, weakness, recurrent syncope 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 Patient had history of trauma to the back and after that he has been taking narcotics for pain control. Patient said he has disc bulging and steroid injection b/n C5 and C6 after the injection he said the sycopal episode become more frequent. CT head was done and normal. MRI, both head and spinal cord normal. Neurology consulted and said he doesn't have stroke. Continue home medications for pain control and anxiety. Patient said he has been followed by orthopedics as an outpatient for the pain. Patient is also complaining of anxiety and on clonapam. Patient has been followed by pain management physicians for fibromyalgia/chronic pain. patient was hemodynamically stable at the time of discharge. I didn't find any weakness on my examination. I have been contacted by [facility] and patient was managed by pain management doctor, I told the pharmacy not to give the pain medication I ordered. Disposition: - TO HOME OR SELFCARE Time spent for discharge: 34 minutes - Discharge Diagnoses (1) CVA (cerebral vascular accident) Status: Ruled-out Qualifiers: Precerebral and cerebral artery: middle cerebral artery Laterality of affected vessel: left (2) Cervical radiculopathy Status: Acute (3) DVT prophylaxis Status: Acute (4) Fibromyalgia Status: Acute (5) Obesity (BMI 30.0-34.9) Status: Acute Core Measure Documentation - Palliative Care Palliative Care/ Comfort Measures: Not Applicable - Core Measures Any of the following diagnoses?: none Exam - Physical Exam Narrative exam: Not in cardiopulmonary distress. The patient appeared well nourished and normally developed. Vital signs as documented. Head exam is unremarkable. No scleral icterus . Neck is without jugular venous distension, thyromegaly, or carotid bruits. Lungs are clear to auscultation. Cardiac exam reveals regular rate and Rhythm. First and second heart sounds normal. No murmurs, rubs or gallops. Abdominal exam reveals normal bowel sounds, no masses, no organomegaly and no aortic enlargement. Extremities are nonedematous and both femoral and pedal pulses are normal. 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 No focal weakness. - Constitutional Vitals: Temp Pulse Resp BP Pulse Ox 97.5 F L 67 14 114/79 100 09/16/17 07:56 09/16/17 07:56 09/16/17 07:56 09/16/17 07:56 09/16/17 07:56 Plan Activity: no restrictions Weight Bearing Status: Full Weight Bearing Diet: regular Additional Instructions: Follow at [facility] in 1-2 weeks if no PCP Follow up with: BETTY LA MD [Staff Physician] - 7 Days PRIMARY CARE, [Primary Care Provider] - 3-5 Days Forms: Work/School Release Form Prescriptions: HYDROcodone/APAP 10-325 [[place] 10-325 mg TAB] 1 each PO Q8HR PRN #12 tablet PRN Reason: Pain
[2017-09-18 21:10] LABS: ANA Screen, IFA Negative (Negative)
--- NOTE | 2017-09-19 14:13 | Magnetic Resonance Report ---
FINAL REPORT PROCEDURE: MR BRAIN WO/W CON TECHNIQUE: Magnetic resonance imaging of the brain was performed before and after the IV injection of paramagnetic contrast. HISTORY: syncope, weakness, ? ms COMPARISON: No prior studies are available for comparison. FINDINGS: The signal intensity from the substance of the brain appears normal. Normal jefferson-white matter differentiation is visualized. There is no evidence of intracranial hemorrhage. No parenchymal hemorrhage, mass lesions or mass effect are seen. No abnormal areas of enhancement are seen. There is no abnormal restricted diffusion that would suggest an acute ischemic event. No abnormal signal changes visualized in the white matter that would suggest a demyelinating process such as multiple sclerosis. The corpus callosum, region of the pituitary fossa and foramen magnum appear normal. There is a 2 centimeter nodular density in the floor of the left maxillary sinus suggesting mucous retention cyst. Paranasal sinuses otherwise appear clear. The mastoid air cells are clear. IMPRESSION: Minimal paranasal sinus disease as described otherwise negative MRI of the brain without and with gadolinium enhancement. I do not see evidence of a demyelinating process. No changes to suggest multiple sclerosis.
== END 2017-09-16 12:13 | disposition home or self-care (01) ==
LOC: ED 12:08 → 4A 16:13 → INTOOBSV 16:13 → 4A 21:23
PROVIDERS: ADMIT Internal Medicine; ATTEND Internal Medicine
DX: M54.12 Radiculopathy, cervical region (principal); G89.29 Other chronic pain; I63.9 Cerebral infarction, unspecified; M79.7 Fibromyalgia; R55 Syncope and collapse; R06.02 Shortness of breath; Z68.31 Body mass index [BMI] 31.0-31.9, adult
CPT/HCPCS: 36415; 70553; 72141; 80053; 80061; 80307; 81001; 82306; 82550; 82607; 83735; 84132; 84439; 84443; 84484; 85025; 85379; 85610; 85652; 86038; 86140; 86850; 86900; 86901; 92610; 93005; 93010; 93306; 95819; 96361; 96372; 96374; 96376; 97163; 97165; 99285; A9270; A9577; G0378; J1650; J2270; J2405; J7030